=== PATIENT | male | born 1960 | race Caucasian/White ===

== ENCOUNTER 2016-10-22 18:59 | Emergency (ER) | payer BC, OTHER ==
[~2016-10-22] VITALS: Ht 160 cm; Wt 70.9 kg
[~2016-10-22 18:59] MED LIST: TAMSULOSIN PO
[2016-10-22 19:06] VITALS: Ht 160 cm; Wt 70.9 kg
[2016-10-22] MEDS ORDERED: FAMO-96 PO (19:25)
[2016-10-22] MEDS ORDERED: EPIN0.3P4 INJ (19:25)
[2016-10-22] MEDS ORDERED: PRED20TA PO (19:25)
[2016-10-22] MEDS ORDERED: BEN25 PO (19:25)
[2016-10-22] MEDS ORDERED: FAMOTIDINE 20 MG TAB PO ONE (19:30)
[2016-10-22] MEDS ORDERED: METHYLPREDNISOLONE 125 MG INJ IM ONE (19:30)
[2016-10-22 19:41] VITALS: BP 128/89; PULSE 83; RESP 18; TEMP 98.1
--- NOTE | 2016-10-22 20:44 | ERD ---
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 +SOB HPI This patient is a 55-year-old male with no significant medical history presenting to the emergency department with complaints of generalized body rash most notably on his anterior chest and upper back which started approximately 15 minutes after drinking a new type of tea today. He also felt shortness of breath but this is now resolved. He denies wheezing, respiratory distress, or other significant symptoms. Overall he is feeling improved now. He took no medication prior to coming to the ER for relief of symptoms. ROS All systems reviewed and are negative except as per history of present illness. Medications Home Meds Active Scripts Diphenhydramine Hcl* (Benadryl*) 25 Mg Cap, 25 MG PO Q6, #30 CAP Prov:JIM LALA PA-C 10/22/16 Famotidine* (Pepcid*) 20 Mg Tablet, 20 MG PO BID for 4 Days, #8 TAB Prov:JIM LALA PA-C 10/22/16 Prednisone* (Prednisone*) 20 Mg Tab, 40 MG PO DAILY for 4 Days, #8 TAB Prov:JIM LALA PA-C 10/22/16 Epinephrine (Epipen 2-James) 0.3 Mg/0.3 Ml Pen.injctr, 1 EA INJ ONCE Y for ALLERGIC REACTION, #1 EA Prov:JIM LALA PA-C 10/22/16 Reported Medications [Flomax unknose dose] No Conflict Check, PO DAILY 01/05/13 Allergies Allergies: Uncoded Allergies: PCN (Allergy, Unknown, rashes, 10/22/16) PENICILLIN (Allergy, Unknown, 10/22/16) PMhx/Soc History of Surgery: Yes (prostate -cyst removed) Anesthesia Reaction: No Hx Neurological Disorder: No Hx Respiratory Disorders: No Hx Cardiac Disorders: No Hx Psychiatric Problems: No Hx Miscellaneous Medical Probl: Yes (prostate) Hx Alcohol Use: No Hx Substance Use: No Hx Tobacco Use: No Smoking Status: Never smoker Physical Exam Vitals Vital Signs Date Time Temp Pulse Resp B/P Pulse Ox O2 Delivery O2 Flow Rate FiO2 10/22/16 19:41 98.1 83 18 128/89 98 Room Air 10/22/16 19:06 98.6 82 18 135/99 96 Physical Exam Const: Nontoxic, well-appearing male in no acute distress. Head: Atraumatic Eyes: Normal Conjunctiva ENT: Normal External Ears, Nose and Mouth. Neck: Full range of motion..~ No meningismus. Resp: Clear to auscultation bilaterally. No signs of respiratory distress. No retractions. No wheezing noted. No crackles noted. Cardio: Regular rate and rhythm, no murmurs Abd: Soft, non tender, non distended. Normal bowel sounds Skin: No petechiae or rashes. There are multiple erythematous papules noted to the anterior chest and the upper back. No vesicles noted. No discharge noted. No significant warmth noted. Back: No midline or flank tenderness Ext: No cyanosis, or edema Neur: Awake and alert Psych: Normal Mood and Affect Results 24 hrs Current Medications Medications (Trade) Dose Ordered Sig/Renetta Route PRN Reason Start Time Stop Time Status Last Admin Dose Admin Methylprednisolone Sodium Succinate (Solu-Medrol) 125 mg ONCE ONCE IM 10/22/16 19:30 10/22/16 19:31 DC 10/22/16 19:26 Famotidine (Pepcid) 20 mg ONCE ONCE PO 10/22/16 19:30 10/22/16 19:31 DC 10/22/16 19:26 Procedures/MDM This patient is a 55-year-old male presenting for urticarial rash after drinking a new type of tea prior to arrival. Examination is consistent with an allergic rash. The patient did have an episode of shortness of breath before coming to the emergency department but the symptoms are now resolved and the lung examination shows no acute findings. The patient was given p.o. Pepcid and IM Solu-Medrol in the department and he was feeling improved prior to discharge. He is stable for outpatient management with prescriptions for Pepcid , Benadryl, prednisone, and an EpiPen. He was advised to return immediately with any new or worsening symptoms. I have very low suspicion for anaphylaxis at this time. The patient is to follow-up with his primary care physician in the next 24-72 hours and he is to return immediately for any new or worsening symptoms. Departure Diagnosis: Primary Impression: Rash and nonspecific skin eruption Condition: Fair Patient Instructions: Self-Care for Skin Rashes, Allergic Reaction, Other ( General) Additional Instructions: Follow up with your PCP within the next 1-3 days for a repeat evaluation. If you require a referral to a specialist, your Primary Care Provider may be able to provide this for you. In most patient cases, a referral is not required. If you have further questions regarding this matter, please ask your Primary Care Provider. Return the the emergency department immediately if symptoms worsen or change. If you have any questions regarding medications, ask your pharmacist or us before you leave. If any adverse reactions, occur while taking your medications, discontinue the treatment and return to the emergency department immediately. If any new or worsening symptoms, uncontrolled fevers, or other unexplained symptoms occur, return to the emergency department immediately. Take your medications as directed, and complete the entire course of treatment. JIM LALA PA-C Oct 22, 2016 20:44
== END 2016-10-22 19:47 | disposition home or self-care (01) ==
LOC: FTE 18:59
DX: R21 Rash and other nonspecific skin eruption (principal)
CPT/HCPCS: 96372; J2930; Z7502; Z7610